=== PATIENT | female | born 1950 | race Caucasian/White ===

== ENCOUNTER → 2020-01-28 11:36 | Outpatient (CLI) | payer OTHER, MEDICAID, SELFPAY ==
--- NOTE | 2020-01-28 | DI.CT.S_ITS ---
PROCEDURE: CT SOFT TISSUE NECK W CON INDICATIONS: LOCALIZED SWELLING TECHNIQUE: After the administration of intravenous contrast, 3.0 mm axial sections acquired from the sella to the aortic arch. Additional oblique axial 3.0 mm sections acquired through the pharynx. 3 mm thick coronal and sagittal reformats were generated. For radiation dose reduction, the following was used: automated exposure control. COMPARISON: None. FINDINGS: Image quality: Excellent. Lymph nodes: No enlarged lymph nodes seen throughout the neck. Vessels: Visualized vasculature appears patent. Neck spaces: There is a hyperenhancing mass seen involving the tongue base on the right, which measures at least 2.6 x 1.7 cm in greatest axial dimension, with a craniocaudal extent of nearly 3 cm. There is partial involvement of the vallecula seen, with potential thickening of the right aryepiglottic fold. The oropharynx, nasopharynx, and pharynx demonstrate no mucosal lesions. The vocal cords, false vocal cords, pyriform sinuses, and epiglottis all appear normal. Extramucosal spaces appear unremarkable. Glands: The parotid and submandibular glands appear normal. Thyroid gland demonstrates bilateral low density nodules, which are larger on the right side than on the left. Miscellaneous: Visualized brain and orbits appear normal. Lung apices appear clear. Superficial soft tissues appear normal. Bones: No suspicious bony lesions. Visualized sinuses and mastoids appear unremarkable. Sternotomy wires are partially seen. Relatively prominent cervical spine degenerative change is seen, with moderate to severe disc space narrowing at C4-C5, C5-C6, and C6-C7. IMPRESSION: There is a right tongue base mass seen, which measures nearly 3 cm. No frankly enlarged lymph nodes are seen, although bilateral borderline prominent lymph nodes can be seen. If clinically appropriate, please consider a dedicated PET/CT for further evaluation. Bilateral low-density thyroid nodules are incidentally noted. If clinically appropriate, please consider a dedicated thyroid ultrasound for further evaluation. Incidental note is made of: Cervical spine degenerative change Poststernotomy changes Dictated by: Jose Fajardo M.D. on 01/28/2020 at 12:02 Approved by: Jose Fajardo M.D. on 01/28/2020 at 12:07
[2020-01-28 12:29] LABS: BUN Creatinine Ratio 22.6 (6-22); Blood Urea Nitrogen 14 mg/dL (7-17); Estimated Glomerular Filt Rate > 60.0 mL/min (>60)
== END ==
PROVIDERS: PCP Registered Nurse; Referring Provider Otolaryngology; Visit Provider Otolaryngology
DX: R22.0 Localized swelling, mass and lump, head (principal); D49.0 Neoplasm of unspecified behavior of digestive system; R13.19 Other dysphagia; E04.2 Nontoxic multinodular goiter; M47.812 Spondylosis without myelopathy or radiculopathy, cervical region
CPT/HCPCS: 36415; 70491; 82565; 84520